=== PATIENT | female | born 1960 ===

== ENCOUNTER 2020-02-10 10:07 | Outpatient (CLI) | payer OTHER | END 2020-02-10 10:09 | disposition home or self-care (01) | LOC: TOM 10:07 | DX: C50.811 Malignant neoplasm of overlapping sites of right female breast (principal); R91.1 Solitary pulmonary nodule; R59.0 Localized enlarged lymph nodes ==

== ENCOUNTER → 2020-09-21 | Outpatient (CLI) | payer OTHER | END | disposition home or self-care (01) | LOC: TOM 07:15 | DX: R91.1 Solitary pulmonary nodule (principal); C50.811 Malignant neoplasm of overlapping sites of right female breast; R59.0 Localized enlarged lymph nodes ==

== ENCOUNTER 2021-08-20 07:51 | Outpatient (CLI) | payer OTHER | END 2021-08-20 08:00 | disposition home or self-care (01) | LOC: TOM 07:51 | PROVIDERS: ATTEND Internal Medicine Hematology & Oncology | DX: R91.1 Solitary pulmonary nodule (principal); Z85.3 Personal history of malignant neoplasm of breast; C50.811 Malignant neoplasm of overlapping sites of right female breast ==

== ENCOUNTER 2022-07-13 12:16 | Outpatient (CLI) | payer OTHER | END 2022-07-13 12:22 | disposition home or self-care (01) | LOC: TOM 12:16 | PROVIDERS: ATTEND Internal Medicine Hematology & Oncology | DX: C50.811 Malignant neoplasm of overlapping sites of right female breast (principal); C79.51 Secondary malignant neoplasm of bone; R91.1 Solitary pulmonary nodule ==